=== PATIENT | male | born 1965 | race Caucasian/White ===

== ENCOUNTER 2016-12-29 10:32 | Observation (INO) | payer OTHER ==
[~2016-12-29] VITALS: Ht 180.3 cm; Wt 125.7 kg
[~2016-12-29 10:32] MED LIST: AMLO-147; FENO145T25; FISH OIL; GLYB5TAB3; HYDR25TA6; LISI40TA9; LOVASA; SITA100T8
[2016-12-29 10:38] VITALS: Ht 180.3 cm; Wt 125.7 kg
[2016-12-29 11:50] LABS: BASOPHIL # 0.1 10^3/ul (0.0-0.1); BASOPHILS % 0.5 % (0.0-2.0); EOSINOPHILS # 0.2 10^3/ul (0.0-0.5); EOSINOPHILS % 1.5 % (0.0-7.0); HEMATOCRIT 41.1 % (42.0-52.0); HEMOGLOBIN 15.3 g/dl (14.0-18.0); LYMPHOCYTES # 2.5 10^3/ul (0.8-2.9); LYMPHOCYTES % 20.8 % (15.0-51.0); MEAN CORPUSCULAR HEMOGLOBIN 30.9 pg (29.0-33.0); MEAN CORPUSCULAR HGB CONC 37.2 g/dl (32.0-37.0); MEAN PLATELET VOLUME 10.3 fl (7.4-10.4); MONOCYTE # 0.8 10^3/ul (0.3-0.9); MONOCYTES % 6.5 % (0.0-11.0); NEUTROPHIL # 8.3 10^3/ul (1.6-7.5); NEUTROPHILS % 70.2 % (39.0-77.0); PLATELET COUNT 308 10^3/UL (140-415); RED BLOOD COUNT 4.95 10^6/ul (4.70-6.10); RED CELL DISTRIBUTION WIDTH 12.7 % (11.5-14.5); WHITE BLOOD COUNT 11.8 10^3/ul (4.8-10.8)
[2016-12-29 12:04] LABS: INR 1.06; PARTIAL THROMBOPLASTIN TIME 27.6 Sec (25.0-35.0); PROTIME 13.8 Sec (12.2-14.2); PT RATIO 1.1
[2016-12-29 12:08] LABS: ANION GAP 14 (8-16); BLOOD UREA NITROGEN 28 mg/dl (7-20); CALCIUM 9.3 mg/dl (8.4-10.2); CARBON DIOXIDE 31 mmol/L (21-31); CHLORIDE 98 mmol/L (97-110); CREATININE 1.11 mg/dl (0.61-1.24); GLUCOSE 261 mg/dl (70-220); SODIUM 140 mmol/L (135-144)
[2016-12-29] MEDS ORDERED: GLIP-95 PO (12:13)
[2016-12-29] MEDS ORDERED: HYDR-3671 PO (12:13)
[2016-12-29] MEDS ORDERED: LISI40TA9 PO (12:13)
[2016-12-29] MEDS ORDERED: LEVO100T87 PO (12:14)
[2016-12-29] MEDS ORDERED: GEMF600T60 PO (12:14)
[2016-12-29] MEDS ORDERED: METF500T4 PO (12:15)
[2016-12-29] MEDS ORDERED: CALC600T24 PO (12:15)
[2016-12-29] MEDS ORDERED: AMLO-147 PO (12:16)
[2016-12-29] MEDS ORDERED: METO200T6 PO (12:16)
[2016-12-29] MEDS ORDERED: ESCI10TA48 PO (12:16)
[2016-12-29] MEDS ORDERED: FENO43CA3 PO (12:17)
[2016-12-29] MEDS ORDERED: CHOL200073 PO (12:18)
[2016-12-29] MEDS ORDERED: LANT3I SC (12:18)
[2016-12-29] MEDS ORDERED: POTASSIUM CHLORIDE (SR) 20 MEQ TAB PO STA (12:19)
[2016-12-29] MEDS ORDERED: INSU100I12 SQ (12:19)
--- NOTE | 2016-12-29 12:21 | RADRPT ---
PROCEDURE: Chest x-ray CLINICAL INDICATION: Stroke TECHNIQUE: Chest single view COMPARISON: None FINDINGS: The heart is moderately enlarged in size. The pulmonary vessels are normal in caliber. Lung volumes are low with basilar atelectasis. Lungs otherwise clear. The costophrenic angles are sharp. The vis ualized bony thorax is unremarkable. IMPRESSION: 1. Moderate cardiomegaly. 2. Low lung volumes RPTAT: HH .Magen Estrada MD, Date Time Electronically viewed and signed by .Magen Estrada MD, on 12/29/2016 12:20 .W/
[2016-12-29 12:33] LABS: TROPONIN-I < 0.012 ng/ml (0.00-0.12)
--- NOTE | 2016-12-29 13:35 | RADRPT ---
PROCEDURE: CT Head without contrast. CLINICAL INDICATION: Dizziness, possible stroke TECHNIQUE: Continuous axial CT images were obtained from the base of skull to the vertex. No cont rast was administered. The calculated radiation dose measures 720 mGy centimeters. The CTDI measures 44 mGy One or more of the following dose reduction techniques were used: Automated exposure control. Adjustment of the mA and/or kV according to patient size. Use of iterative reconstruction technique. COMPARISON: No prior studies are available for comparison. FINDINGS: There is encephalomalacia and volume loss in the anterior right frontal lobe, consistent with old st roke or contusion. There is mild ex vacuo dilatation of the right lateral ventricle frontal horn. There is mild diffuse cerebral volume loss. The ventricles are symmetric and normal in configuratio n. There is no mass effect or midline shift. There is no abnormal intra-axial or extra-axial fluid collection. There is no evidence of intracranial hemorrhage. There are scattered areas of decreased attenuation in the supratentorial white matter, consistent wi th minimal small vessel ischemic changes. There is mild atherosclerotic vascular calcification. The bony calvarium is intact. There are old bilateral frontal ventriculostomy tracts. The orbital s oft tissue contents are unremarkable. Paranasal sinuses appear clear. IMPRESSION: 1. Mild age related cerebral volume loss. Minimal small vessel ischemic changes. 2. Mild atherosclerotic vascular calcification. 3. 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 4. No mass effect or acute intracranial bleed. RPTAT: QQ .Warner De La Rosa MD, Date Time Electronically viewed and signed by .Warner De La Rosa MD, on 12/29/2016 13:35 .T/
[2016-12-29] MEDS ORDERED: ASPIRIN 325 MG TAB PO ONE (14:30)
[2016-12-29] MEDS ORDERED: ACETAMINOPHEN 325 MG TAB PO PRN ×2 (14:30→18:00)
[2016-12-29] MEDS ORDERED: ONDANSETRON 4 MG INJ IV PRN (14:30)
--- NOTE | 2016-12-29 15:17 | ERA ---
ER Documentation Chief Complaint Date/Time DATE: 12/29/16 TIME: 15:15 Chief Complaint DX WITH WHAT THEY ARE DESCRIBING HYDROCECHALOUS AND IS DIZZY HPI Patient is a 51-year-old male with CVA, hypertension, and diabetes who presents with dizziness. He said that 2 weeks ago he had an outpatient MRI done and they told him that he had "leakage in the brain". He cannot tell me exactly what the diagnosis was in the family did not bring the MRI report. The patient has had dizziness and felt off balance since yesterday. He denies headache or pain. He has had constant dizziness. He has had no treatment as of yet. Upon review of old medical records this is the patient's third visit to the ER since 2010. ROS All systems reviewed and are negative except as per history of present illness. Medications Home Meds Reported Medications Insulin Lispro (Humalog Kwikpen U-100) 100 Unit/1 Ml Insuln.pen, 20 UNIT SQ BEFORE MEALS 12/29/16 Insulin Glargine* (Lantus*) 100 Unit/Ml Soln, 70 UNIT SC QHS, #1 VIAL 12/29/16 Cholecalciferol (Vitamin D3) (VITAMIN D-3) 2,000 Unit Capsule, 2000 UNIT PO DAILY, CAP 12/29/16 Fenofibrate, Micronized (Fenofibrate) 43 Mg Capsule, 43 MG PO DAILY, CAP 12/29/16 Escitalopram Oxalate* (Escitalopram Oxalate*) 10 Mg Tablet, 10 MG PO DAILY, #30 TAB 12/29/16 Amlodipine Besylate* (Amlodipine Besylate*) 10 Mg Tablet, 10 MG PO DAILY, #30 TAB 12/29/16 Metoprolol Succinate* (Toprol XL*) 200 Mg Tab.sr.24h, 200 MG PO BID, #30 TAB 12/29/16 Metformin Hcl* (Metformin Hcl*) 500 Mg Tablet, 500 MG PO WITH BREAKFAST DINNE, # 60 TAB 12/29/16 Calcium Carbonate* (Calcium Carbonate*) 600 MG Ca Tab, 600 MG PO DAILY, TAB 12/29/16 Levothyroxine Sodium* (Levothyroxine Sodium*) 100 Mcg Tablet, 100 MCG PO BEFORE BREAKFAST, #30 TAB 12/29/16 Gemfibrozil* (Gemfibrozil*) 600 Mg Tablet, 600 MG PO BID, TAB 12/29/16 Glipizide* (Glipizide*) 10 Mg Tablet, 10 MG PO AC BREAKFAST DINNER, TAB 12/29/16 Lisinopril* (Lisinopril*) 40 Mg Tablet, 40 MG PO DAILY, #30 TAB 12/29/16 Hydralazine Hcl* (Hydralazine Hcl*) 25 Mg Tab, 25 MG PO BID, #60 TAB 12/29/16 Discontinued Reported Medications [Lovasa/Fish Oil] No Conflict Check, DAILY 01/29/11 Lisinopril* (Lisinopril*) 40 Mg Tablet, DAILY 01/29/11 Hydrochlorothiazide (Hydrochlorothiazide) 25 Mg Tablet, DAILY 01/29/11 Glyburide* (Glyburide*) 5 Mg Tablet, DAILY 01/29/11 Amlodipine Besylate* (Amlodipine Besylate*) 10 Mg Tablet, DAILY 01/29/11 Sitagliptin* (Januvia*) 100 Mg Tablet, DAILY 01/29/11 Fenofibrate Nanocrystallized* (Tricor*) 145 Mg Tablet, DAILY AM 01/29/11 Allergies Allergies: Coded Allergies: No Known Allergy (Unverified , 12/29/16) PMhx/Soc History of Surgery: No Anesthesia Reaction: No Hx Neurological Disorder: No Hx Respiratory Disorders: No Hx Cardiac Disorders: Yes (HtN) Hx Psychiatric Problems: No Hx Miscellaneous Medical Probl: No (dm, cva) Hx Alcohol Use: Yes (OCCASSIONAL) Hx Substance Use: No Hx Tobacco Use: No Smoking Status: Never smoker FmHx Family History: diabetes Physical Exam Vitals Vital Signs Date Time Temp Pulse Resp B/P Pulse Ox O2 Delivery O2 Flow Rate FiO2 12/29/16 11:37 Nasal Cannula 2 12/29/16 11:21 65 20 128/68 99 Room Air 12/29/16 10:38 63 18 139/80 97 Physical Exam Const: Mild distress secondary to dizziness Head: Atraumatic Eyes: Normal Conjunctiva ENT: Normal External Ears, Nose and Mouth. Neck: Full range of motion..~ No meningismus. Resp: Clear to auscultation bilaterally Cardio: Regular rate and rhythm, no murmurs Abd: Soft, non tender, non distended. Normal bowel sounds Skin: No petechiae or rashes Back: No midline or flank tenderness Ext: No cyanosis, or edema Neur: Awake and alert, cranial nerves II through XII are intact, strength is 5 out of 5 in all 4 extremities, speech is normal, patient is dizzy Psych: Normal Mood and Affect Result Diagram: 12/29/16 1130 12/29/16 1130 Results 24 hrs Laboratory Tests Test 12/29/16 11:30 White Blood Count 11.810^3/ul Red Blood Count 4.9510^6/ul Hemoglobin 15.3g/dl Hematocrit 41.1% Mean Corpuscular Volume 83.0fl Mean Corpuscular Hemoglobin 30.9pg Mean Corpuscular Hemoglobin Concent 37.2g/dl Red Cell Distribution Width 12.7% Platelet Count 10266^3/UL Mean Platelet Volume 10.3fl Neutrophils % 70.2% Lymphocytes % 20.8% Monocytes % 6.5% Eosinophils % 1.5% Basophils % 0.5% Nucleated Red Blood Cells % 0.0/100WBC Neutrophils # 8.310^3/ul Lymphocytes # 2.510^3/ul Monocytes # 0.810^3/ul Eosinophils # 0.210^3/ul Basophils # 0.110^3/ul Nucleated Red Blood Cells # 0.010^3/ul Prothrombin Time 13.8Sec Prothrombin Time Ratio 1.1 INR International Normalized Ratio 1.06 Activated Partial Thromboplast Time 27.6Sec Sodium Level 140mmol/L Potassium Level 3.0mmol/L Chloride Level 98mmol/L Carbon Dioxide Level 31mmol/L Anion Gap 14 Blood Urea Nitrogen 28mg/dl Creatinine 1.11mg/dl Glucose Level 261mg/dl Hemoglobin A1c 8.9% Calcium Level 9.3mg/dl Troponin I < 0.012ng/ml Current Medications Medications (Trade) Dose Ordered Sig/Gracy Route PRN Reason Start Time Stop Time Status Last Admin Dose Admin Potassium Chloride (Klor-Con 20) 40 meq ONCE STAT PO 12/29/16 12:19 12/29/16 12:22 DC 12/29/16 12:29 Aspirin (Aspirin) 325 mg ONCE ONCE PO 12/29/16 14:30 12/29/16 14:30 DC Ondansetron HCl (Zofran Inj) 4 mg ER BRIDGE PRN IV NAUSEA AND/OR VOMITING 12/29/16 14:30 12/30/16 14:29 Acetaminophen (Tylenol Tab) 650 mg ER BRIDGE PRN PO MILD PAIN/FEVER 12/29/16 14:30 12/30/16 14:29 Procedures/MDM CT brain shows no acute process per radiology. EKG read by me: Rate/Rhythm: Regular rate and rhythm at a normal rate Intervals: Normal Impression: No evidence of ischemia or arrhythmia Patient is a 51-year-old male presents with acute dizziness. I am concerned for acute stroke. It is unclear as to whether this is an ischemic stroke or possibly a bleed given the history of "leakage" so therefore I will hold off on aspirin at this time as I feel the risk would outweigh the benefits. The patient will likely need inpatient MRI. I spoke with Dr. Pedraza as the patient has regal insurance will admit the patient to a telemetry bed. The patient has hyperglycemia but no DKA. The patient has hypokalemia and was given potassium by mouth. Departure Diagnosis: Primary Impression: Dizziness Additional Impressions: Stroke Qualified Code: I63.9 - Cerebrovascular accident (CVA), unspecified mechanism Hyperglycemia Hypokalemia Condition: ADRIANA Carmen MD Dec 29, 2016 15:17
[2016-12-29 17:11] VITALS: PULSE 63
[2016-12-29 17:43] VITALS: BP 151/91; RESP 19
[2016-12-29] MEDS ORDERED: GLUCOSE GEL 15 GRAM TUBE PO PRN ×2 (18:00)
[2016-12-29] MEDS ORDERED: GLUCOSE GEL 15 GRAM TUBE BUCCAL PRN (18:00)
[2016-12-29] MEDS ORDERED: DEXTROSE 50% 50 ML SYRINGE IV PRN ×2 (18:00)
[2016-12-29] MEDS ORDERED: GLUCAGON 1 MG INJ IM PRN (18:00)
[2016-12-29] MEDS ORDERED: NACL 0.9% 3 ML SYG IV SCH (18:00)
[2016-12-29] MEDS ORDERED: DOCUSATE SODIUM 100 MG CAP PO PRN (18:00)
--- NOTE | 2016-12-29 18:00 | HP ---
Date/Time of Note Date/Time of Note DATE: 12/29/16 TIME: 17:59 Assessment/Plan VTE Prophylaxis VTE Prophylaxis Intervention: LMWH Assessment/Plan Assessment/Plan [facility] 1. 51yo man with a history of stroke two years ago, with subacute onset of cerebellar ataxia yesterday. Otherwise normal neurologic exam, with normal patellar reflexes and strength bilaterally. CT scan ruled out acute cerebellar bleeding. Cerebellar edema or infarction are other potential acute causes. * He was out of the window of opportunity for anti-thrombus therapy * Place under telemetry observation * Bed rest * Obtain MRI results from study two weeks ago at [facility] 2. Diabetes * Accuchecks qAC and qHS * Maintain better control. 3. Hypertension -- stable 4. Prevention: famotidine for GI; Lovenox for DVT prophylaxis. 5. Disposition: Home once workup is complete with his . * Full-code [place] Pedraza MD PhD [phone] HPI/ROS Admit Date/Time Admit Date/Time Dec 29, 2016 at 14:23 Hx of Present Illness cc: Dizzy HPI: 51yo man with a history of stroke two years ago, and subsequent disability due to memory loss. His explained that he got up yesterday morning and began complaining of constant dizziness after breakfast. The dizziness lasted through the day yesterday, and he woke with it again this morning. But today he was unable to bear weight without assistance. No falling or head trauma. No headache, visual change, weakness, tingling/numbness , cough, chest discomfort, or dyspnea. ROS as above. PMH/Family/Social Past Medical History Medical History: diabetes, high cholesterol, hypertension Past Surgical History Past Surgical Hx: no surgical history Family History Significant Family History: heart disease (His father at 65 of a heart attack; his mother is still living. 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 Lives with his , and two of their five children -- along with two grandchildren. Smoking Status: Never smoker Exam/Review of Systems Vital Signs Vitals Vital Signs Date Time Temp Pulse Resp B/P Pulse Ox O2 Delivery O2 Flow Rate FiO2 12/29/16 17:43 98.4 63 19 151/91 96 12/29/16 16:57 Room Air 12/29/16 11:37 2 Exam Exam Constitutional: alert, oriented, well developed Psych: nl mood/affect, no complaints Head: atraumatic, normocephalic Eyes: EOMI, PERRL, nl conjunctiva, nl sclera ENMT: mucosa pink and moist, nl external ears & nose Neck: non-tender, supple, No bruits, No jvd, No masses, No nuchal rigidity, No thyromegaly Respiratory: clear to auscultation, normal air movement, No congested cough, No crackles/rales, No diminished breath sounds, No intercostal retraction, No labored breathing, No respirations, No wheezing Cardiovascular: nl pulses, regular rate and rhythm, No bruits, No diastolic murmur, No edema, No gallop, No irregular rhythm, No jugular venous distention ( JVD), No murmurs/extra sounds, No rub, No systolic murmur Gastrointestinal: bowel sounds, nl liver, spleen, non-tender, soft Genitourinary - Male: No CVA tenderness Musculoskeletal: muscle tone, nl extremities to inspection, range of motion Extremities: normal pulses, No calf tenderness, No clubbing, No cyanosis, No edema, No palpable cord, No pitting pedal edema, No tenderness Neurological: [employer] II-XII intact, confused, nl mental status, nl speech, nl strength, other (compromised short-term and long-term memory) Skin: nl turgor, No diaphoresis, No ecchymosis, No laceration, No rash or lesions Lymph: nl lymph nodes Labs Result Diagram: 12/29/16 1130 12/29/16 1130 Medications Medications Current Medications Amlodipine Besylate (Norvasc) 10 mg DAILY PO ; Start 12/30/16 at 09:00 Cholecalciferol (Vitamin D) 2,000 unit DAILY PO ; Start 12/30/16 at 09:00 Escitalopram Oxalate (Lexapro) 10 mg DAILY PO ; Start 12/29/16 at 18:00 Gemfibrozil (Lopid) 600 mg BID PO ; Start 12/29/16 at 21:00 Hydralazine HCl (Apresoline) 25 mg BID PO ; Start 12/29/16 at 21:00 Insulin Glargine (Lantus) 70 unit QHS SC ; Start 9/23/17 at 21:00 Levothyroxine Sodium (Synthroid) 100 mcg DAILY@06 PO ; Start 12/30/16 at 06:00 Lisinopril (Zestril) 40 mg DAILY PO ; Start 12/30/16 at 09:00 Metoprolol Succinate (Toprol Xl) 200 mg BID PO ; Start 12/29/16 at 21:00 Miscellaneous Information 1 ea NOTE XX ; Start 12/29/16 at 18:00 Glucose (Glutose) 15 gm Q15M PRN PO DECREASED GLUCOSE; Start 12/29/16 at 18:00 Glucose (Glutose) 22.5 gm Q15M PRN PO DECREASED GLUCOSE; Start 12/29/16 at 18: 00 Dextrose (D50w Syringe) 25 ml Q15M PRN IV DECREASED GLUCOSE; Start 12/29/16 at 18:00 Dextrose (D50w Syringe) 50 ml Q15M PRN IV DECREASED GLUCOSE; Start 12/29/16 at 18:00 Glucagon (Glucagen) 1 mg Q15M PRN IM DECREASED GLUCOSE; Start 12/29/16 at 18:00 Glucose (Glutose) 15 gm Q15M PRN BUCCAL DECREASED GLUCOSE; Start 12/29/16 at 18 :00 PIERRE PEDRAZA M.D. Dec 29, 2016 18:00
[2016-12-29] MEDS ORDERED: CHLO25TA13 PO (18:12)
[2016-12-29] MEDS ORDERED: HYDR25TA6 PO (18:12)
[2016-12-29] MEDS: SOD CHLORIDE 0.9% 1,000 ML IV SCH (18:42)
[2016-12-29] MEDS: ESCITALOPRAM 10 MG TAB PO SCH (18:43)
[2016-12-29] MEDS: metFORMIN 500 MG TAB PO SCH (18:43)
[2016-12-29] MEDS: ENOXAPARIN 40 MG/0.4 ML SYG SC SCH (18:44)
[2016-12-29] MEDS: INSULIN ASPART [NOVOLOG] 3 ML PEN SC SCH (18:45)
[2016-12-29 18:55] LABS: CREATINE KINASE 249 IU/L (23-200)
[2016-12-29 19:12] LABS: CK-MB 2.94 ng/ml (0.0-2.4); TROPONIN-I < 0.012 ng/ml (0.00-0.12)
[2016-12-29 19:40] VITALS: BP 157/83; RESP 19
[2016-12-29 20:18] VITALS: PULSE 64
[2016-12-29] MEDS: FAMOTIDINE 20 MG TAB PO SCH (20:44)
[2016-12-29] MEDS: GEMFIBROZIL 600 MG TAB PO SCH (20:44)
[2016-12-29] MEDS: METOPROLOL (XL) 100 MG TAB PO SCH (20:45)
[2016-12-29] MEDS: INSULIN GLARGINE [LANtus] 3 ML PEN SC SCH (20:52)
--- NOTE | 2016-12-29 22:49 | CONS ---
Date/Time of Note Date/Time of Note DATE: 12/29/16 TIME: 22:30 Consultation Date/Type/Reason Admit Date/Time Dec 29, 2016 at 14:23 Date/Time DATE: 12/29/16 TIME: 15:15 Chief Complaint DX WITH WHAT THEY ARE DESCRIBING HYDROCEPHALOUS AND IS DIZZY HPI Patient is a 51-year-old male with CVA, hypertension, and diabetes who presents with dizziness. He said that 2 weeks ago he had an outpatient MRI done and they told him that he had "leakage in the brain". He cannot tell me exactly what the diagnosis was in the family did not bring the MRI report. The patient has had dizziness and felt off balance since yesterday. He denies headache or pain. He has had constant dizziness. He has had no treatment as of yet. Upon review of old medical records this is the patient's third visit to the ER since 2010. ROS All systems reviewed and are negative except as per history of present illness. Medications Home Meds Reported Medications Insulin Lispro (Humalog Kwikpen U-100) 100 Unit/1 Ml Insuln.pen, 20 UNIT SQ BEFORE MEALS 12/29/16 Insulin Glargine* (Lantus*) 100 Unit/Ml Soln, 70 UNIT SC QHS, #1 VIAL 12/29/16 Cholecalciferol (Vitamin D3) (VITAMIN D-3) 2,000 Unit Capsule, 2000 UNIT PO DAILY, CAP 12/29/16 Fenofibrate, Micronized (Fenofibrate) 43 Mg Capsule, 43 MG PO DAILY, CAP 12/29/16 Escitalopram Oxalate* (Escitalopram Oxalate*) 10 Mg Tablet, 10 MG PO DAILY, #30 TAB 12/29/16 Amlodipine Besylate* (Amlodipine Besylate*) 10 Mg Tablet, 10 MG PO DAILY, #30 TAB 12/29/16 Metoprolol Succinate* (Toprol XL*) 200 Mg Tab.sr.24h, 200 MG PO BID, #30 TAB 12/29/16 Metformin Hcl* (Metformin Hcl*) 500 Mg Tablet, 500 MG PO WITH BREAKFAST DINNE, # 60 TAB 12/29/16 Calcium Carbonate* (Calcium Carbonate*) 600 MG Ca Tab, 600 MG PO DAILY, TAB 12/29/16 Levothyroxine Sodium* (Levothyroxine Sodium*) 100 Mcg Tablet, 100 MCG PO BEFORE BREAKFAST, #30 TAB 12/29/16 Gemfibrozil* (Gemfibrozil*) 600 Mg Tablet, 600 MG PO BID, TAB 12/29/16 Glipizide* (Glipizide*) 10 Mg Tablet, 10 MG PO AC BREAKFAST DINNER, TAB 12/29/16 Lisinopril* (Lisinopril*) 40 Mg Tablet, 40 MG PO DAILY, #30 TAB 12/29/16 Hydralazine Hcl* (Hydralazine Hcl*) 25 Mg Tab, 25 MG PO BID, #60 TAB 12/29/16 Discontinued Reported Medications [Lovasa/Fish Oil] No Conflict Check, DAILY 01/29/11 Lisinopril* (Lisinopril*) 40 Mg Tablet, DAILY 01/29/11 Hydrochlorothiazide (Hydrochlorothiazide) 25 Mg Tablet, DAILY 01/29/11 Glyburide* (Glyburide*) 5 Mg Tablet, DAILY 01/29/11 Amlodipine Besylate* (Amlodipine Besylate*) 10 Mg Tablet, DAILY 01/29/11 Sitagliptin* (Januvia*) 100 Mg Tablet, DAILY 01/29/11 Fenofibrate Nanocrystallized* (Tricor*) 145 Mg Tablet, DAILY AM 01/29/11 Allergies Allergies: Coded Allergies: No Known Allergy (Unverified , 12/29/16) PMhx/Soc History of Surgery: No Anesthesia Reaction: No Hx Neurological Disorder: No Hx Respiratory Disorders: No Hx Cardiac Disorders: Yes (HtN) Hx Psychiatric Problems: No Hx Miscellaneous Medical Probl: No (dm, cva) Hx Alcohol Use: Yes (OCCASSIONAL) Hx Substance Use: No Hx Tobacco Use: No Smoking Status: Never smoker FmHx Family History: diabetes Physical Exam Vitals Vital Signs Date Time Temp Pulse Resp B/P Pulse Ox O2 Delivery O2 Flow Rate FiO2 12/29/16 11:37 Nasal Cannula 2 12/29/16 11:21 65 20 128/68 99 Room Air 12/29/16 10:38 63 18 139/80 97 Physical Exam Const: Mild distress secondary to dizziness Head: Atraumatic Eyes: Normal Conjunctiva ENT: Normal External Ears, Nose and Mouth. Neck: Full range of motion..~ No meningismus. Resp: Clear to auscultation bilaterally Cardio: Regular rate and rhythm, no murmurs Abd: Soft, non tender, non distended. Normal bowel sounds Skin: No petechiae or rashes Back: No midline or flank tenderness Ext: No cyanosis, or edema Neur: Awake and alert, cranial nerves II through XII are intact, strength is 5 out of 5 in all 4 extremities, speech is normal, patient is dizzy Psych: Normal Mood and Affect Result Diagram: 12/29/16 22:30 Vitals: Temp: 99.1; BP: 151/83; P: 60 bpm, regular; RR: 18, unlabored. 12/29/16 1130 Results 24 hrs Laboratory Tests Test 12/29/16 11:30 White Blood Count 11.810^3/ul Red Blood Count 4.9510^6/ul Hemoglobin 15.3g/dl Hematocrit 41.1% Mean Corpuscular Volume 83.0fl Mean Corpuscular Hemoglobin 30.9pg Mean Corpuscular Hemoglobin Concent 37.2g/dl Red Cell Distribution Width 12.7% Platelet Count 19179^3/UL Mean Platelet Volume 10.3fl Neutrophils % 70.2% Lymphocytes % 20.8% Monocytes % 6.5% Eosinophils % 1.5% Basophils % 0.5% Nucleated Red Blood Cells % 0.0/100WBC Neutrophils # 8.310^3/ul Lymphocytes # 2.510^3/ul Monocytes # 0.810^3/ul Eosinophils # 0.210^3/ul Basophils # 0.110^3/ul Nucleated Red Blood Cells # 0.010^3/ul Prothrombin Time 13.8Sec Prothrombin Time Ratio 1.1 INR International Normalized Ratio 1.06 Activated Partial Thromboplast Time 27.6Sec Sodium Level 140mmol/L Potassium Level 3.0mmol/L Chloride Level 98mmol/L Carbon Dioxide Level 31mmol/L Anion Gap 14 Blood Urea Nitrogen 28mg/dl Creatinine 1.11mg/dl Glucose Level 261mg/dl Hemoglobin A1c 8.9% Calcium Level 9.3mg/dl Troponin I < 0.012ng/ml Current Medications Medications (Trade) Dose Ordered Sig/Gracy Route PRN Reason Start Time Stop Time Status Last Admin Dose Admin Potassium Chloride (Klor-Con 20) 40 meq ONCE STAT PO 12/29/16 12:19 12/29/16 12:22 DC 12/29/16 12:29 Aspirin (Aspirin) 325 mg ONCE ONCE PO 12/29/16 14:30 12/29/16 14:30 DC Ondansetron HCl (Zofran Inj) 4 mg ER BRIDGE PRN IV NAUSEA AND/OR VOMITING 12/29/16 14:30 12/30/16 14:29 Acetaminophen (Tylenol Tab) 650 mg ER BRIDGE PRN PO MILD PAIN/FEVER 12/29/16 14:30 12/30/16 14:29 Procedures/MDM CT brain shows no acute process per radiology. EKG read by me: Rate/Rhythm: Regular rate and rhythm; Inferior ME, age undetermined. Intervals: Normal Impression: No evidence of ischemia or arrhythmia Patient is a 51-year-old male presents with acute dizziness. EKG shows an old inferior Q wave ME. Departure Diagnosis: Primary Impression: Dizziness Additional Impressions: Stroke Qualified Code: I63.9 - Cerebrovascular accident (CVA), unspecified mechanism Hyperglycemia Hypokalemia Hypertension PLAN: 1. Adjust BP medications as needed. 2. Will order echocardiogram. 3. Will follow hospital course with you. Thank You MONISHA DIGGS MD Social History Smoking Status: Never smoker Exam/Review of Systems Vital Signs Vitals Vital Signs Date Time Temp Pulse Resp B/P Pulse Ox O2 Delivery O2 Flow Rate FiO2 12/29/16 20:18 64 12/29/16 19:40 99.1 19 157/83 98 12/29/16 16:57 Room Air 12/29/16 11:37 2 Results Result Diagram: 12/29/16 1130 12/29/16 1130 Results 24 hrs Laboratory Tests Test 12/29/16 11:30 12/29/16 17:21 12/29/16 18:34 12/29/16 20:43 White Blood Count 11.8 H Red Blood Count 4.95 Hemoglobin 15.3 Hematocrit 41.1 L Mean Corpuscular Volume 83.0 Mean Corpuscular Hemoglobin 30.9 Mean Corpuscular Hemoglobin Concent 37.2 H Red Cell Distribution Width 12.7 Platelet Count 308 Mean Platelet Volume 10.3 Neutrophils % 70.2 Lymphocytes % 20.8 Monocytes % 6.5 Eosinophils % 1.5 Basophils % 0.5 Nucleated Red Blood Cells % 0.0 Neutrophils # 8.3 H Lymphocytes # 2.5 Monocytes # 0.8 Eosinophils # 0.2 Basophils # 0.1 Nucleated Red Blood Cells # 0.0 Prothrombin Time 13.8 Prothrombin Time Ratio 1.1 INR International Normalized Ratio 1.06 Activated Partial Thromboplast Time 27.6 Sodium Level 140 Potassium Level 3.0 L Chloride Level 98 Carbon Dioxide Level 31 Anion Gap 14 Blood Urea Nitrogen 28 H Creatinine 1.11 Glucose Level 261 H Hemoglobin A1c 8.9 H Calcium Level 9.3 Troponin I < 0.012 < 0.012 Bedside Glucose 288 H 182 Creatine Kinase 249 H Creatine Kinase Index 1.2 Creatinine Kinase MB (Mass) 2.94 H Medications Medications Current Medications Amlodipine Besylate (Norvasc) 10 mg DAILY PO ; Start 12/30/16 at 09:00 Cholecalciferol (Vitamin D) 2,000 unit DAILY PO ; Start 12/30/16 at 09:00 Escitalopram Oxalate (Lexapro) 10 mg DAILY PO Last administered on 12/29/16 18 :43; Admin Dose 10 MG; Start 12/29/16 at 18:00 Gemfibrozil (Lopid) 600 mg BID PO Last administered on 12/29/16 20:44; Admin Dose 600 MG; Start 12/29/16 at 21:00 Hydralazine HCl (Apresoline) 25 mg BID PO Last administered on 12/29/16 20:45 ; Admin Dose 25 MG; Start 12/29/16 at 21:00 Insulin Glargine (Lantus) 70 unit QHS SC Last administered on 12/29/16 20:52; Admin Dose 70 UNIT; Start 12/29/16 at 21:00 Levothyroxine Sodium (Synthroid) 100 mcg DAILY@06 PO ; Start 12/30/16 at 06:00 Lisinopril (Zestril) 40 mg DAILY PO ; Start 12/30/16 at 09:00 Metoprolol Succinate (Toprol Xl) 200 mg BID PO Last administered on 12/29/16 20:45; Admin Dose 200 MG; Start 12/29/16 at 21:00 Miscellaneous Information 1 ea NOTE XX ; Start 12/29/16 at 18:00 Glucose (Glutose) 15 gm Q15M PRN PO DECREASED GLUCOSE; Start 12/29/16 at 18:00 Glucose (Glutose) 22.5 gm Q15M PRN PO DECREASED GLUCOSE; Start 12/29/16 at 18: 00 Dextrose (D50w Syringe) 25 ml Q15M PRN IV DECREASED GLUCOSE; Start 12/29/16 at 18:00 Dextrose (D50w Syringe) 50 ml Q15M PRN IV DECREASED GLUCOSE; Start 12/29/16 at 18:00 Glucagon (Glucagen) 1 mg Q15M PRN IM DECREASED GLUCOSE; Start 12/29/16 at 18:00 Glucose 15 gm 15 gm Q15M PRN BUCCAL DECREASED GLUCOSE; Start 12/29/16 at 18:00 Sodium Chloride (NS) 1,000 ml @ 75 mls/hr [id number] IV Last administered on 12/29 18:42; Admin Dose 75 MLS/HR; Start 12/29/16 at 17:50 Acetaminophen (Tylenol Tab) 650 mg Q6H PRN PO PAIN LEVEL 1-3 OR FEVER; Start at 18:00 Docusate Sodium (Colace) 100 mg Q12H PRN PO CONSTIPATION; Start 12/29/16 at 18: 00 Famotidine (Pepcid) 20 mg Q12 PO Last administered on 12/29/16 20:44; Admin Dose 20 MG; Start 12/29/16 at 21:00 Enoxaparin Sodium (Lovenox) 40 mg DAILY SC Last administered on 12/29/16 18:44 ; Admin Dose 40 MG; Start 12/29/16 at 18:00 Influenza Virus Vaccine (Fluzone) 0.5 ml ONCE ONCE IM* ; Start 12/30/16 at 09:00 ; Stop 12/30/16 at 09:01 MONISHA DIGGS MD Dec 29, 2016 22:47
[2016-12-30] VITALS (11 sets, daily range): BP systolic 141–170; BP diastolic 79–96; PULSE 53–59; RESP 16–20
[2016-12-30 01:38] LABS: TROPONIN-I 0.017 ng/ml (0.00-0.12)
[2016-12-30 01:41] LABS: CK-MB 2.51 ng/ml (0.0-2.4)
[2016-12-30] MEDS: LEVOTHYROXINE 100 MCG TAB PO SCH (06:17)
[2016-12-30] MEDS: metFORMIN 500 MG TAB PO SCH ×2 (08:00→16:36)
[2016-12-30] MEDS: INSULIN ASPART [NOVOLOG] 3 ML PEN SC SCH ×3 (08:19→17:24)
[2016-12-30] MEDS: ENOXAPARIN 40 MG/0.4 ML SYG SC SCH (08:19)
[2016-12-30] MEDS: ESCITALOPRAM 10 MG TAB PO SCH (08:21)
[2016-12-30] MEDS: FAMOTIDINE 20 MG TAB PO SCH ×2 (08:24→20:30)
[2016-12-30] MEDS: AMLODIPINE 10 MG TAB PO SCH (08:24)
[2016-12-30] MEDS: CHOLECALCIFEROL 2,000 UNIT CAP PO SCH (08:26)
[2016-12-30] MEDS: GEMFIBROZIL 600 MG TAB PO SCH ×2 (08:27→20:30)
[2016-12-30] MEDS: LISINOPRIL 20 MG TAB PO SCH (08:27)
[2016-12-30] MEDS: METOPROLOL (XL) 100 MG TAB PO SCH ×2 (08:27→20:31)
[2016-12-30] MEDS: SOD CHLORIDE 0.9% 1,000 ML IV SCH ×2 (08:33→20:30)
[2016-12-30] MEDS: glipiZIDE 10 MG TAB PO SCH ×2 (08:33→17:24)
[2016-12-30] MEDS ORDERED: INFLUENZA VIRUS VACCINE 0.5 ML SYG IM* ONE (09:00)
--- NOTE | 2016-12-30 14:28 | CONS ---
Date/Time of Note Date/Time of Note DATE: 12/30/16 TIME: 14:21 Assessment/Plan Assessment/Plan Chief Complaint/Hosp Course Dizziness and imbalance of the gait Problems: Additional Assessment/Plan 51-year-old man with a history of hemorrhagic stroke two years ago underwent bur hole and evacuation of hematoma. He was brought in following persisting symptoms of dizziness and imbalance of the gait. CT scan of the brain showed minimal small vessel ischemic changes, mild atherosclerotic vascular calcification, old right high frontal contusion or infarct. He has no symptoms now while laying in the hospital bed. Examination is nonfocal. He may have benign positional vertigo, would like to rule out acute cerebellar stroke. Plan 1 MRI of the brain 2 MR angiogram of head and neck 3 start on aspirin 81 mg p.o. daily 4 start on meclizine 12.5 mg p.o. 3 times daily 5 do not make sudden movements 6 will follow Consultation Date/Type/Reason Admit Date/Time Dec 29, 2016 at 14:23 Date of Consultation: Dec 30, 2016 Type of Consultation: Neurology Reason for Consultation Dizziness and imbalance of the gait Referring Provider: NESTOR FONG Hx of Present Illness 51-year-old man with a history of hemorrhagic stroke two years ago underwent bur hole and evacuation of hematoma. He was brought in following persisting symptoms of dizziness and imbalance of the gait. CT scan of the brain showed minimal small vessel ischemic changes, mild atherosclerotic vascular calcification, old right high frontal contusion or infarct. He has no symptoms now while laying in the hospital bed. Constitutional: improved, no complaints Eyes: no complaints ENT: no complaints Respiratory: no complaints Cardiovascular: no complaints Gastrointestinal: no complaints Genitourinary: no complaints Musculoskeletal: no complaints Skin: no complaints Neurologic: no complaints Endocrine: no complaints Lymphatic: no complaints Psychological: nl mood/affect, no complaints Immunologic: no complaints Past Medical History Medical History: diabetes, high cholesterol, hypertension Past Surgical History Past Surgical Hx: no surgical history Social History Smoking Status: Never smoker Exam/Review of Systems Vital Signs Vitals Vital Signs Date Time Temp Pulse Resp B/P Pulse Ox O2 Delivery O2 Flow Rate FiO2 12/30/16 12:00 55 12/30/16 12:00 98.2 16 150/80 95 12/29/16 16:57 Room Air 12/29/16 11:37 2 Intake and Output 12/29/16 12/29/1612/30/17 15:00 23:00 07:00 Intake Total 250 ml Balance 250 ml Exam Constitutional: alert, oriented, well developed Psych: nl mood/affect, no complaints Head: atraumatic, normocephalic Eyes: EOMI, nl conjunctiva, nl lids, nl sclera ENMT: mucosa pink and moist, nl external ears & nose, nl lips & teeth, nl nasal mucosa & septum Neck: non-tender, supple Respiratory: clear to auscultation, normal air movement Cardiovascular: nl pulses, regular rate and rhythm Gastrointestinal: nl liver, spleen, soft Extremities: normal pulses 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, nl mental status, nl speech, nl strength Results Result Diagram: 12/29/16 1130 12/29/16 1130 Results 24 hrs Laboratory Tests Test 12/29/16 17:21 12/29/16 18:34 12/29/16 20:43 12/30/16 00:50 Bedside Glucose 288 H 182 Creatine Kinase 249 H 226 H Creatine Kinase Index 1.2 1.1 Creatinine Kinase MB (Mass) 2.94 H 2.51 H Troponin I < 0.012 0.017 Test 12/30/16 07:52 12/30/16 11:52 Bedside Glucose 111 83 Medications Medications Current Medications Amlodipine Besylate (Norvasc) 10 mg DAILY PO Last administered on 12/30/16 08: 24; Admin Dose 10 MG; Start 12/30/16 at 09:00 Cholecalciferol (Vitamin D) 2,000 unit DAILY PO Last administered on 12/30/16 08:26; Admin Dose 2,000 UNIT; Start 12/30/16 at 09:00 Escitalopram Oxalate (Lexapro) 10 mg DAILY PO Last administered on 12/30/16 08 :21; Admin Dose 10 MG; Start 12/29/16 at 18:00 Gemfibrozil (Lopid) 600 mg BID PO Last administered on 12/30/16 08:27; Admin Dose 600 MG; Start 12/29/16 at 21:00 Hydralazine HCl (Apresoline) 25 mg BID PO Last administered on 12/30/16 08:23 ; Admin Dose 25 MG; Start 12/29/16 at 21:00 Insulin Glargine (Lantus) 70 unit QHS SC Last administered on 12/29/16 20:52; Admin Dose 70 UNIT; Start 12/29/16 at 21:00 Levothyroxine Sodium (Synthroid) 100 mcg DAILY@06 PO Last administered on 06:17; Admin Dose 100 MCG; Start 12/30/16 at 06:00 Lisinopril (Zestril) 40 mg DAILY PO Last administered on 12/30/16 08:27; Admin Dose 40 MG; Start 12/30/16 at 09:00 Metoprolol Succinate (Toprol Xl) 200 mg BID PO Last administered on 12/29/16 20:45; Admin Dose 200 MG; Start 12/29/16 at 21:00 Miscellaneous Information 1 ea NOTE XX ; Start 12/29/16 at 18:00 Glucose (Glutose) 15 gm Q15M PRN PO DECREASED GLUCOSE; Start 12/29/16 at 18:00 Glucose (Glutose) 22.5 gm Q15M PRN PO DECREASED GLUCOSE; Start 12/29/16 at 18: 00 Dextrose (D50w Syringe) 25 ml Q15M PRN IV DECREASED GLUCOSE; Start 12/29/16 at 18:00 Dextrose (D50w Syringe) 50 ml Q15M PRN IV DECREASED GLUCOSE; Start 12/29/16 at 18:00 Glucagon (Glucagen) 1 mg Q15M PRN IM DECREASED GLUCOSE; Start 12/29/16 at 18:00 Glucose 15 gm 15 gm Q15M PRN BUCCAL DECREASED GLUCOSE; Start 12/29/16 at 18:00 Sodium Chloride (NS) 1,000 ml @ 75 mls/hr [id number] IV Last administered on 12/30 08:33; Admin Dose 75 MLS/HR; Start 12/29/16 at 17:50 Acetaminophen (Tylenol Tab) 650 mg Q6H PRN PO PAIN LEVEL 1-3 OR FEVER; Start at 18:00 Docusate Sodium (Colace) 100 mg Q12H PRN PO CONSTIPATION; Start 12/29/16 at 18: 00 Famotidine (Pepcid) 20 mg Q12 PO Last administered on 12/30/16 08:24; Admin Dose 20 MG; Start 12/29/16 at 21:00 Enoxaparin Sodium (Lovenox) 40 mg DAILY SC Last administered on 12/30/16 08:19 ; Admin Dose 40 MG; Start 12/29/16 at 18:[address] scan of the brain 12/29/2016 IMPRESSION: 1. Mild age related cerebral volume loss. Minimal small vessel ischemic changes. 2. Mild atherosclerotic vascular calcification. 3. 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 4. No mass effect or acute intracranial bleed. RPTAT: QQ .Warner De La Rosa MD, MD Date Time Electronically viewed and signed by .Warner De La Rosa MD, MD on 12/29/2016 13:35 SHALOM DEVINE MD Dec 30, 2016 14:28
[2016-12-30] MEDS ORDERED: LORAZEPAM 2 MG INJ IV ONE (15:00)
[2016-12-30 16:14] LABS: CHOL/HDL RATIO 7.4 RATIO
--- NOTE | 2016-12-30 20:25 | PN ---
Date/Time of Note Date/Time of Note DATE: 12/30/16 TIME: 20:24 Assessment/Plan VTE Prophylaxis VTE Prophylaxis Intervention: LMWH Lines/Catheters IV [facility] Peripheral IV Assessment/Plan Assessment/Plan [facility] 1. 51yo man with a history of stroke two years ago, with subacute onset of cerebellar ataxia yesterday. Otherwise normal neurologic exam, with normal patellar reflexes and strength bilaterally. Feeling much-improved today, but still with some dizziness when up on his feet. CT scan ruled out acute cerebellar bleeding. * Continue telemetry observation * Physical therapy evaluation * I tried to obtain MRI results from a study the patient said he had two weeks ago at [facility], but there was no record in their system of such a study. * My thanks to Dr. Correa, who saw the patient today in neurological consultation. He recommended brain MRI and MRA. 2. Diabetes * Continued accuchecks qAC and qHS * Maintain better control. 3. Hypertension -- stable 4. Prevention: famotidine for GI; Lovenox for DVT prophylaxis. 5. Disposition: home with his . * Full-code [place] Pedraza MD PhD [phone] Subjective 24 Hr Interval Summary Free Text/Dictation Feeling much better today. Steady on his feet this morning walking to the washroom, with only mild dizziness now. No headache, visual change, dyspnea, cough, or chest discomfort. Exam/Review of Systems Vital Signs Vitals Vital Signs Date Time Temp Pulse Resp B/P Pulse Ox O2 Delivery O2 Flow Rate FiO2 12/30/16 19:36 97.5 59 20 147/79 97 12/29/16 16:57 Room Air 12/29/16 11:37 2 Intake and Output 12/29/16 12/29/16 12/30/16 15:00 23:00 07:00 Intake Total 250 ml Balance 250 ml Exam Constitutional: alert, oriented, well developed Psych: nl mood/affect, no complaints Head: atraumatic, normocephalic Eyes: EOMI, PERRL, nl conjunctiva, nl sclera ENMT: mucosa pink and moist, nl external ears & nose Neck: non-tender, supple, No bruits, No jvd, No masses, No nuchal rigidity, No thyromegaly Respiratory: clear to auscultation, normal air movement, No congested cough, No crackles/rales, No diminished breath sounds, No intercostal retraction, No labored breathing, No respirations, No wheezing Cardiovascular: nl pulses, regular rate and rhythm, No bruits, No diastolic murmur, No edema, No gallop, No irregular rhythm, No jugular venous distention (JVD), No murmurs/extra sounds, No rub, No systolic murmur Gastrointestinal: bowel sounds, nl liver, spleen, non-tender, soft Genitourinary - Male: No CVA tenderness Musculoskeletal: muscle tone, nl extremities to inspection, range of motion Extremities: normal pulses, No calf tenderness, No clubbing, No cyanosis, No edema, No palpable cord, No pitting pedal edema, No tenderness 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, confused, nl mental status, nl speech, nl strength, other (compromised short-term and long-term memory) Skin: nl turgor, No diaphoresis, No ecchymosis, No laceration, No rash or lesions Lymph: nl lymph nodes Results Result Diagram: 12/29/16 1130 12/29/16 1130 Results 24 hrs Laboratory Tests Test 12/29/16 20:43 12/30/16 00:50 12/30/16 07:52 12/30/16 11:52 Bedside Glucose 182 111 83 Creatine Kinase 226 H Creatine Kinase Index 1.1 Creatinine Kinase MB (Mass) 2.51 H Troponin I 0.017 Test 12/30/16 15:22 12/30/16 17:14 Triglycerides Level 359 H Cholesterol Level 156 LDL Cholesterol, Calculated 63 HDL Cholesterol 21 L Cholesterol/HDL Ratio 7.4 Bedside Glucose 109 Medications Medications Current Medications Amlodipine Besylate (Norvasc) 10 mg DAILY PO Last administered on 12/30/16 08: 24; Admin Dose 10 MG; Start 12/30/16 at 09:00 Cholecalciferol (Vitamin D) 2,000 unit DAILY PO Last administered on 12/30/16 08:26; Admin Dose 2,000 UNIT; Start 12/30/16 at 09:00 Escitalopram Oxalate (Lexapro) 10 mg DAILY PO Last administered on 12/30/16 08 :21; Admin Dose 10 MG; Start 12/29/16 at 18:00 Gemfibrozil (Lopid) 600 mg BID PO Last administered on 12/30/16 08:27; Admin Dose 600 MG; Start 12/29/16 at 21:00 Hydralazine HCl (Apresoline) 25 mg BID PO Last administered on 12/30/16 08:23 ; Admin Dose 25 MG; Start 12/29/16 at 21:00 Insulin Glargine (Lantus) 70 unit QHS SC Last administered on 12/29/16 20:52; Admin Dose 70 UNIT; Start 12/29/16 at 21:00 Levothyroxine Sodium (Synthroid) 100 mcg DAILY@06 PO Last administered on 06:17; Admin Dose 100 MCG; Start 12/30/16 at 06:00 Lisinopril (Zestril) 40 mg DAILY PO Last administered on 12/30/16 08:27; Admin Dose 40 MG; Start 12/30/16 at 09:00 Metoprolol Succinate (Toprol Xl) 200 mg BID PO Last administered on 12/29/16 20:45; Admin Dose 200 MG; Start 12/29/16 at 21:00 Miscellaneous Information 1 ea NOTE XX ; Start 12/29/16 at 18:00 Glucose (Glutose) 15 gm Q15M PRN PO DECREASED GLUCOSE; Start 12/29/16 at 18:00 Glucose (Glutose) 22.5 gm Q15M PRN PO DECREASED GLUCOSE; Start 12/29/16 at 18: 00 Dextrose (D50w Syringe) 25 ml Q15M PRN IV DECREASED GLUCOSE; Start 12/29/16 at 18:00 Dextrose (D50w Syringe) 50 ml Q15M PRN IV DECREASED GLUCOSE; Start 12/29/16 at 18:00 Glucagon (Glucagen) 1 mg Q15M PRN IM DECREASED GLUCOSE; Start 12/29/16 at 18:00 Glucose 15 gm 15 gm Q15M PRN BUCCAL DECREASED GLUCOSE; Start 12/29/16 at 18:00 Sodium Chloride (NS) 1,000 ml @ 75 mls/hr [id number] IV Last administered on 12/30 08:33; Admin Dose 75 MLS/HR; Start 12/29/16 at 17:50 Acetaminophen (Tylenol Tab) 650 mg Q6H PRN PO PAIN LEVEL 1-3 OR FEVER; Start at 18:00 Docusate Sodium (Colace) 100 mg Q12H PRN PO CONSTIPATION; Start 12/29/16 at 18: 00 Famotidine (Pepcid) 20 mg Q12 PO Last administered on 12/30/16 08:24; Admin Dose 20 MG; Start 12/29/16 at 21:00 Enoxaparin Sodium (Lovenox) 40 mg DAILY SC Last administered on 12/30/16 08:19 ; Admin Dose 40 MG; Start 12/29/16 at 18:00 Meclizine HCl (Antivert) 12.5 mg TID PO ; Start 12/30/16 at 21:00 PIERRE PEDRAZA M.D. Dec 30, 2016 20:25
[2016-12-30] MEDS: MECLIZINE 12.5 MG TAB PO SCH (20:30)
[2016-12-30] MEDS: INSULIN GLARGINE [LANtus] 3 ML PEN SC SCH (20:37)
[2016-12-31] VITALS (10 sets, daily range): BP systolic 133–173; BP diastolic 67–93; PULSE 50–66; RESP 18–59
[2016-12-31] MEDS: glipiZIDE 10 MG TAB PO SCH ×2 (06:18→09:06)
[2016-12-31] MEDS: LEVOTHYROXINE 100 MCG TAB PO SCH (06:18)
[2016-12-31] MEDS: INSULIN ASPART [NOVOLOG] 3 ML PEN SC SCH ×3 (08:45→17:22)
[2016-12-31 08:51] LABS: CHOL/HDL RATIO 7.2 RATIO; CREATININE 0.86 mg/dl (0.61-1.24)
[2016-12-31] MEDS: METOPROLOL (XL) 100 MG TAB PO SCH (09:00)
[2016-12-31] MEDS: GEMFIBROZIL 600 MG TAB PO SCH (09:03)
[2016-12-31] MEDS: LISINOPRIL 20 MG TAB PO SCH (09:07)
[2016-12-31] MEDS: AMLODIPINE 10 MG TAB PO SCH (09:07)
[2016-12-31] MEDS: MECLIZINE 12.5 MG TAB PO SCH ×2 (09:08→12:46)
[2016-12-31] MEDS: FAMOTIDINE 20 MG TAB PO SCH (09:09)
[2016-12-31] MEDS: ESCITALOPRAM 10 MG TAB PO SCH (09:10)
[2016-12-31] MEDS: metFORMIN 500 MG TAB PO SCH ×2 (09:22→17:31)
[2016-12-31] MEDS: ENOXAPARIN 40 MG/0.4 ML SYG SC SCH (09:22)
[2016-12-31] MEDS: CHOLECALCIFEROL 2,000 UNIT CAP PO SCH (09:33)
[2016-12-31] MEDS: SOD CHLORIDE 0.9% 1,000 ML IV SCH (09:50)
[2016-12-31] MEDS ORDERED: POTASSIUM CHLORIDE (SR) 20 MEQ TAB PO SCH (12:30)
--- NOTE | 2016-12-31 14:00 | RADRPT ---
Echocardiogram Report Patient Name: JH BURK Gender: Male Date: 1965 Study Date: 30-Dec-2016 Crystal Lapper: Joycelyn [facility] Location: [id number] Ref. Physician: MONISHA DIGGS Quality: Adequate Procedures: Transthoracic echocardiogram with complete 2D, M-Mode, and doppler examination. Indications: Evaluate Left Ventricular function. 2D/M Mode Doppler Measurement Value Normal Ranges Measurement Value Normal Ranges LVIDd 2D 5.6 3.5 - 5.6 cm AV Peak Tung 1.1 m/sec LVIDs 2D 4.2 2.1 - 4.1 cm AV Peak PG 5.0 mmHg FS 2D 26.1 % LVOT Peak Tung 0.8 m/sec LVPWd 2D 1.7 0.6 - 1.1 cm LVOT Peak PG 3.0 mmHg IVSd 2D 1.9 0.6 - 1.1 cm MV E Peak Tung 0.7 m/sec IVS/LVPW 2D 1.1 MV A Peak Tung 0.8 m/sec AoR Diam 2D 3.0 2.0 - 3.7 cm MV E/A 0.9 LA/Ao 2D 1 0 - 1 MV Decel Time 183 msec EDV 2D 178.0 cm3 MV E/A 0.9 ESV 2D 72.0 cm3 LA Dimen 2D 4.0 2.3 - 4.0 cm Findings Left Ventricle: Lower limits of normal systolic function. Normal left ventricular cavity size. Severe concentric left ventricular hypertrophy. Ejection fraction is visually estimated at 50 %. Abnormal Diastolic Function. Right Ventricle: Normal right ventricular size. Normal right ventricular systolic function. Left Atrium: The left atrium is normal in size. Right Atrium: The right atrium is normal in size. Mitral Valve: Mitral valve leaflets appear mildly thickened. Mild mitral annular calcification. Trace mitral regurgitation. Aortic Valve: Aortic cusps appear mildly calcified. Trace aortic valve regurgitation. Tricuspid Valve: Normal appearance of the tricuspid valve. Unable to obtain RVSP due to minimal presence of tricuspid regurgitation. There is trace tricuspid regurgitation. Pulmonic Valve: Pulmonic valve not well visualized. There is trace pulmonic regurgitation. Pericardium: Normal pericardium with no significant pericardial effusion. Aorta: Normal aortic root. IVC: Normal size and normal respiratory collapse consistent with normal right atrial pressure. Conclusions 1.LV is at the lower limits of normal systolic function. Mild left ventricular cavity enlargement. Moderate to severe concentric left ventricular hypertrophy. Ejection fraction is visually estimated at 50 %. Grade 1 Diastolic Function. 2.The left atrium is borderline enlarged. 3.Normal IVC diameter with normal respiratory collapse consistent with normal right atrial pressure. 4.Suboptimal 2D resolution limits the assessment of the LV apex. Electronically Signed By: Monisha Diggs 31-Dec-2016 13:59:42 -0700 Patient Name: JH BURK Study Date: 30-Dec-2016 [id number]
--- NOTE | 2016-12-31 16:45 | CONS ---
Date/Time of Note Date/Time of Note DATE: 12/31/16 TIME: 16:43 Consult Date/Type/Reason Admit Date/Time Dec 29, 2016 at 14:23 Initial Consult Date 12/30/16 Type of Consultation: Neurology Reason for Consultation eval for CVA Ordering Provider: NESTOR FONG Subjective remains stable no new neurologic symptoms Objective Vital Signs Date Time Temp Pulse Resp B/P Pulse Ox O2 Delivery O2 Flow Rate FiO2 12/31/16 16:00 66 12/31/16 11:53 98.4 20 138/67 98 12/29/16 16:57 Room Air 12/29/16 11:37 2 Intake and Output 12/30/16 12/30/16 12/31/16 15:00 23:00 07:00 Intake Total 350 ml 250 ml Balance 350 ml 250 ml Exam Constitutional: alert, oriented, well developed Psych: nl mood/affect, no complaints Head: atraumatic, normocephalic Eyes: EOMI, nl conjunctiva, nl lids, nl sclera ENMT: mucosa pink and moist, nl external ears & nose, nl lips & teeth, nl nasal mucosa & septum Neck: non-tender, supple Respiratory: clear to auscultation, normal air movement Cardiovascular: nl pulses, regular rate and rhythm Gastrointestinal: nl liver, spleen, soft Extremities: normal pulses 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, nl mental status, nl speech, nl strength Results/Medications Result Diagram: 12/29/16 1130 12/31/16 0710 Results 24 hrs Laboratory Tests Test 12/30/16 17:14 12/30/16 20:29 12/31/16 07:10 12/31/16 08:40 Bedside Glucose 109 106 85 Sodium Level 141 Potassium Level 3.0 L Chloride Level 104 Carbon Dioxide Level 29 Anion Gap 11 Blood Urea Nitrogen 19 # Creatinine 0.86 Glucose Level 101 # Calcium Level 9.0 Triglycerides Level 224 H Cholesterol Level 153 LDL Cholesterol, Calculated 87 HDL Cholesterol 21 L Cholesterol/HDL Ratio 7.2 Test 12/31/16 11:56 Bedside Glucose 168 Medications Current Medications Amlodipine Besylate (Norvasc) 10 mg DAILY PO Last administered on 12/31/16t 09: 07; Admin Dose 10 MG; Start 12/30/16 at 09:00 Cholecalciferol (Vitamin D) 2,000 unit DAILY PO Last administered on 12/31/16 09:33; Admin Dose 2,000 UNIT; Start 12/30/16 at 09:00 Escitalopram Oxalate (Lexapro) 10 mg DAILY PO Last administered on 12/31/16 09 :10; Admin Dose 10 MG; Start 12/29/16 at 18:00 Gemfibrozil (Lopid) 600 mg BID PO Last administered on 12/31/16 09:03; Admin Dose 600 MG; Start 12/29/16 at 21:00 Hydralazine HCl (Apresoline) 25 mg BID PO Last administered on 12/31/16 09:09 ; Admin Dose 25 MG; Start 12/29/16 at 21:00 Insulin Glargine (Lantus) 70 unit QHS SC Last administered on 12/30/16 20:37; Admin Dose 70 UNIT; Start 12/29/16 at 21:00 Levothyroxine Sodium (Synthroid) 100 mcg DAILY@06 PO Last administered on 06:18; Admin Dose 100 MCG; Start 12/30/16 at 06:00 Lisinopril (Zestril) 40 mg DAILY PO Last administered on 12/31/16 09:07; Admin Dose 40 MG; Start 12/30/16 at 09:00 Metoprolol Succinate (Toprol Xl) 200 mg BID PO Last administered on 12/30/16 20:31; Admin Dose 200 MG; Start 12/29/16 at 21:00 Miscellaneous Information 1 ea NOTE XX ; Start 12/29/16 at 18:00 Glucose (Glutose) 15 gm Q15M PRN PO DECREASED GLUCOSE; Start 12/29/16 at 18:00 Glucose (Glutose) 22.5 gm Q15M PRN PO DECREASED GLUCOSE; Start 12/29/16 at 18: 00 Dextrose (D50w Syringe) 25 ml Q15M PRN IV DECREASED GLUCOSE; Start 12/29/16 at 18:00 Dextrose (D50w Syringe) 50 ml Q15M PRN IV DECREASED GLUCOSE; Start 12/29/16 at 18:00 Glucagon (Glucagen) 1 mg Q15M PRN IM DECREASED GLUCOSE; Start 12/29/16 at 18:00 Glucose 15 gm 15 gm Q15M PRN BUCCAL DECREASED GLUCOSE; Start 12/29/16 at 18:00 Sodium Chloride (NS) 1,000 ml @ 75 mls/hr [id number] IV Last administered on 12/31 09:50; Admin Dose 75 MLS/HR; Start 12/29/16 at 17:50 Acetaminophen (Tylenol Tab) 650 mg Q6H PRN PO PAIN LEVEL 1-3 OR FEVER; Start at 18:00 Docusate Sodium (Colace) 100 mg Q12H PRN PO CONSTIPATION; Start 12/29/16 at 18: 00 Famotidine (Pepcid) 20 mg Q12 PO Last administered on 12/31/16 09:09; Admin Dose 20 MG; Start 12/29/16 at 21:00 Enoxaparin Sodium (Lovenox) 40 mg DAILY SC Last administered on 12/31/16 09:22 ; Admin Dose 40 MG; Start 12/29/16 at 18:00 Meclizine HCl (Antivert) 12.5 mg TID PO Last administered on 12/31/16 12:46; Admin Dose 12.5 MG; Start 12/30/16 at 21:00 Potassium Chloride (Klor-Con 20) 20 meq BID PO Last administered on 12/31/16 12:47; Admin Dose 20 MEQ; Start 12/31/16 at 12:30 Assessment/Plan Chief Complaint/Hosp Course 51-year-old man with a history of hemorrhagic stroke two years ago underwent bur hole and evacuation of hematoma. He was brought in following persisting symptoms of dizziness and imbalance of the gait. CT scan of the brain showed minimal small vessel ischemic changes, mild atherosclerotic vascular calcification, old right high frontal contusion or infarct. He has no symptoms now while laying in the hospital bed. Examination is nonfocal. He may have benign positional vertigo, would like to rule out acute cerebellar stroke. 1 MRI of the brain 2 MR angiogram of head and neck 3 start on aspirin 81 mg p.o. daily 4 start on meclizine 12.5 mg p.o. 3 times daily check FLP, HBA1C ECHO PT/OT/Speech will follow Problems: ALMA HELTON MD Dec 31, 2016 16:45
--- NOTE | 2016-12-31 16:52 | RADRPT ---
PROCEDURE: MRI Brain without contrast. CLINICAL INDICATION: Dizziness. Concern for CVA. TECHNIQUE: An MRI of the brain was performed utilizing the following sequences: Sagittal and axial T1 weighted, axial T2 weighted, axial diffusion weighted with ADC mapping, coronal GRE, and axial F LAIR. COMPARISON: Brain CT 12/29/2016. FINDINGS: No diffusion weighted abnormalities are seen to suggest the presence of acute ischemia or recent inf arct. No hypointense signal abnormalities are seen on the GRE images to suggest the presence of blo od degradation products. There is no evidence of intracranial hemorrhage, mass effect, or midline s hift. No extra-axial fluid collections are seen. The ventricles and sulci are mildly prominent indic ative of volume loss. Bilateral frontal federico holes are noted likely sequela of prior ventriculostomy catheter. There is area of encephalomalacia in the right frontal lobe likely represent sequela of prior injury . There is associated gradient susceptibility artifact indicative of hemosiderin. There are additional minimal scattered foci of T2 FLAIR hyperintensity in the white matter, which ar e nonspecific in etiology but likely reflect chronic small vessel ischemic changes. No abnormal intracranial vascular flow void is noted. The visualized paranasal sinuses demonstrate m ild scattered mucosal thickening or pronounced in ethmoid air cells. Partial opacification of right mastoid air cells are noted. IMPRESSION: 1. No acute intracranial hemorrhage, infarction or mass. 2. Minimal chronic small vessel ischemic changes. 3. Bilateral frontal federico holes, likely sequela of prior ventriculostomy catheter. 4. Encephalomalacia with associated hemosiderin in the right frontal lobe likely represent sequela of prior injury. 5. Mild generalized cerebral volume loss. RPTAT: HH .Zackary Yarbrough MD, MD Date Time Electronically viewed and signed by .Zackary Yarbrough MD, MD on 12/31/2016 16:52 .N/
--- NOTE | 2016-12-31 16:56 | RADRPT ---
PROCEDURE: MRA Brain. CLINICAL INDICATION: Dizziness, concern for CVA. TECHNIQUE: An MRA of the brain was performed without intravenous contrast utilizing the following sequences: 3-D [id number] images through the intracranial vasculature with post processed more l intensity projections in multiple planes. COMPARISON: Concurrent MRI of the brain. FINDINGS: The petrous, cavernous, and supraclinoid internal carotid artery segments are patent without evidenc e of significant stenosis. The proximal anterior cerebral and middle cerebral arteries are patent wi thout significant stenosis. The intradural vertebral arteries, basilar artery and posterior cerebra l arteries are patent without evidence of significant focal stenosis. No aneurysms are identified. IMPRESSION: 1. Patent major intracranial arteries. RPTAT: HH .Zackary Yarbrough MD, Date Time Electronically viewed and signed by .Zackary Yarbrough MD, MD on 12/31/2016 16:56 .N/
--- NOTE | 2016-12-31 17:40 | PDOCDIS ---
Discharge Instructions DIAGNOSIS Discharge Diagnosis Transient ataxia CONDITION Patient Condition: Good HOME CARE INSTRUCTIONS: Diet Instructions: Special Diet: Controlled carbohydrate ACTIVITY: Activity Restrictions: Slowly Increase Activity Activity Restrictions Comment: Fall precautions FOLLOW UP/APPOINTMENTS Follow-up Plan Primary care doctor in the next week. PIERRE BOUCHER M.D. Dec 31, 2016 17:40
[2016-12-31] MEDS ORDERED: METO200T6 PO (18:02)
[2016-12-31] MEDS ORDERED: METF500T PO (18:02)
[2016-12-31] MEDS ORDERED: MECL12.574 PO (18:03)
--- NOTE | 2016-12-31 18:09 | DS ---
Date/Time of Note Date/Time of Note DATE: 12/31/16 TIME: 18:05 Discharge Summary Admission/Discharge Info Admit Date/Time Dec 29, 2016 at 14:23 Discharge Date/Time Dec 31, 2016 Discharge Diagnosis Transient ataxia Patient Condition: Good Consults Dr. Correa (Neurology) Elizabeth Lynn MD (cardiology) Procedures CT brain; MRI brain; MRA brain Hx of Present Illness cc: Dizzy HPI: 51yo man with a history of diabetes and stroke two years ago, and subsequent disability due to memory loss. His explained that he got up the morning prior to admission and began complaining of constant dizziness after breakfast. The dizziness lasted through the day, and he woke with it again the morning of admission. But the second day he was unable to bear weight without assistance. He had no falling or head trauma, and no headache, visual change, weakness, tingling/numbness, cough, chest discomfort, or dyspnea. Hospital Course He was placed under telemetry observation, after CT of the brain showed no acute bleed. He had continued dizziness that was improved after starting on meclizine. Dr. Correa recommended MRI and MRA of the brain to evaluate for a cerebellar stroke, and apart from volume loss there was no evidence for stroke, tumor, or vascular anomaly. Echocardiogram showed moderate to severe left ventricular hypertrophy, with ejection fraction of 50%. He was started on aspirin 81 mg p.o. daily. Physical therapy consult was obtained. He had mild continued dizziness at rest. On exam today, he had intact strength and cranial nerves. He was able to jog in place and walk on his toes. Heel walking was mildly challenged but possible. Overall, he appeared much improved with regard to gait stability. In light of him being on such a high dose of Toprol XL (200mg PO BID), I wondered if this might be contributing to his lightheadedness. Consequently, we will decrease the dose to 200mg PO each morning. Home Meds Active Scripts Aspirin* (Aspirin* Chew) 81 Mg Tab.chew, 81 MG PO DAILY for 30 Days, TAB.CHEW Prov:PIERRE BOUCHER M.D. 12/31/16 Meclizine Hcl* (Antivert*) 12.5 Mg Tab, 12.5 MG PO TID Y for dizziness, #90 TAB Prov:PIERRE BOUCHER. JessaD. 12/31/16 Metformin Hcl (Glucophage) 500 Mg Tablet, 500 MG PO WITH BREAKFAST DINNE for 30 Days, #60 TAB Prov:PIERRE BOUCHER MIftikhar. 12/31/16 Metoprolol Succinate* (Toprol XL*) 200 Mg Tab.sr.24h, 200 MG PO DAILY, #30 TAB Prov:PIERRE BOUCHER MCornellD. 12/31/16 Reported Medications Hydrochlorothiazide* (Hydrochlorothiazide*) 25 Mg Tab, 25 MG PO BID, #60 TAB 12/29/16 Chlorthalidone* (Chlorthalidone*) 25 Mg Tablet, 25 MG PO DAILY, TAB 12/29/16 Insulin Lispro (Humalog Kwikpen U-100) 100 Unit/1 Ml Insuln.pen, 20 UNIT SQ BEFORE MEALS 12/29/16 Insulin Glargine* (Lantus*) 100 Unit/Ml Soln, 70 UNIT SC QHS, #1 VIAL 12/29/16 Cholecalciferol (Vitamin D3) (VITAMIN D-3) 2,000 Unit Capsule, 2000 UNIT PO DAILY, CAP 12/29/16 Fenofibrate, Micronized (Fenofibrate) 43 Mg Capsule, 43 MG PO DAILY, CAP 12/29/16 Escitalopram Oxalate* (Escitalopram Oxalate*) 10 Mg Tablet, 10 MG PO DAILY, #30 TAB 12/29/16 Amlodipine Besylate* (Amlodipine Besylate*) 10 Mg Tablet, 10 MG PO DAILY, #30 TAB 12/29/16 Calcium Carbonate* (Calcium Carbonate*) 600 MG Ca Tab, 600 MG PO DAILY, TAB 12/29/16 Levothyroxine Sodium* (Levothyroxine Sodium*) 100 Mcg Tablet, 100 MCG PO BEFORE BREAKFAST, #30 TAB 12/29/16 Gemfibrozil* (Gemfibrozil*) 600 Mg Tablet, 600 MG PO BID, TAB 12/29/16 Glipizide* (Glipizide*) 10 Mg Tablet, 10 MG PO AC BREAKFAST DINNER, TAB 12/29/16 Lisinopril* (Lisinopril*) 40 Mg Tablet, 40 MG PO DAILY, #30 TAB 12/29/16 Hydralazine Hcl* (Hydralazine Hcl*) 25 Mg Tab, 25 MG PO BID, #60 TAB 12/29/16 Discontinued Reported Medications [Lovasa/Fish Oil] No Conflict Check, DAILY 01/29/11 Lisinopril* (Lisinopril*) 40 Mg Tablet, DAILY 01/29/11 Hydrochlorothiazide (Hydrochlorothiazide) 25 Mg Tablet, DAILY 01/29/11 Glyburide* (Glyburide*) 5 Mg Tablet, DAILY 01/29/11 Amlodipine Besylate* (Amlodipine Besylate*) 10 Mg Tablet, DAILY 01/29/11 Sitagliptin* (Januvia*) 100 Mg Tablet, DAILY 01/29/11 Fenofibrate Nanocrystallized* (Tricor*) 145 Mg Tablet, DAILY AM 01/29/11 Follow-up Plan Primary care doctor in the next week. Primary Care Provider Silver Peter MD Time spent on discharge: > 30 minutes Pending Labs Laboratory Tests Test 12/30/16 20:29 12/31/16 07:10 12/31/16 08:40 12/31/16 11:56 Bedside Glucose 106mg/dL (70-220) 85mg/dL (70-220) 168mg/dL (70-220) Sodium Level 141mmol/L (135-144) Potassium Level 3.0mmol/L (3.5-5.1) Chloride Level 104mmol/L (97-110) Carbon Dioxide Level 29mmol/L (21-31) Anion Gap 11 (8-16) Blood Urea Nitrogen 19mg/dl (7-20) Creatinine 0.86mg/dl (0.61-1.24) Glucose Level 101mg/dl (70-220) Calcium Level 9.0mg/dl (8.4-10.2) Triglycerides Level 224mg/dl (0-149) Cholesterol Level 153mg/dl (100-200) LDL Cholesterol, Calculated 87mg/dl HDL Cholesterol 21mg/dl (28-71) Cholesterol/HDL Ratio 7.2RATIO Test 12/31/16 17:19 Bedside Glucose 80mg/dL (70-220) PIERRE BOUCHER M.D. Dec 31, 2016 18:09
[2016-12-31] MEDS ORDERED: ASPI81TA3 PO (18:11)
[2017-01-01 12:41] LABS: HOMOCYSTEINE - CARDIOVASCULAR 12.7 umol/L (<11.4)
== END 2016-12-31 19:03 | disposition home or self-care (01) ==
LOC: E/R 10:32 → INTOOBSV 14:23 → MS4 14:23
PROVIDERS: ADMIT Internal Medicine; ATTEND Internal Medicine
DX: R27.0 Ataxia, unspecified (principal); I10 Essential (primary) hypertension; E11.65 Type 2 diabetes mellitus with hyperglycemia; Z79.4 Long term (current) use of insulin; E78.00 Pure hypercholesterolemia, unspecified; I69.311 Memory deficit following cerebral infarction; Z23 Encounter for immunization
CPT/HCPCS: 36415; 70450; 70546; 70551; 71010; 80048; 80061; 82550; 82553; 82962; 83036; 83090; 84484; 85025; 85610; 85730; 90686; 92610; 93005; 93306; 96372; G0008; J1650; J1815; J7030; Z7500; Z7502; Z7610; 99217; G0378

== ENCOUNTER 2017-06-09 10:30 | Emergency (ER) | END 2017-06-09 13:37 | disposition home or self-care (01) ==